=== PATIENT | male | born 1955 | race Caucasian/White ===

== ENCOUNTER 2024-02-03 22:16 | Emergency (ER) | payer MEDICARE, SELFPAY ==
[2024-02-03 22:27] VITALS: BP 222/132; PULSE 65; RESP 16; TEMP 36.7; O2SAT 96; BMI 35.4
--- NOTE | 2024-02-03 23:16 | CTR_ITS ---
PROCEDURE INFORMATION: Exam: CT Abdomen And Pelvis With Contrast Exam date and time: 02/03/2024 11:45 PM Age: 68 years old Clinical indication: Abdominal pain; Prior surgery; Surgery date: 6+ months; Surgery type: Umbilical hernia repair; Patient HX: C/O periumbilical pain; Additional info: Abd pain TECHNIQUE: Imaging protocol: Computed tomography of the abdomen and pelvis with contrast. Radiation optimization: All CT scans at this facility use at least one of these dose optimization techniques: automated exposure control; mA and/or kV adjustment per patient size (includes targeted exams where dose is matched to clinical indication); or iterative reconstruction. Contrast material: OMNI 350; Contrast volume: 100 ml; Contrast route: INTRAVENOUS (IV); COMPARISON: No relevant prior studies available. RADIATION DOSE METRICS: Total DLP (mGy-cm): 1129.13 FINDINGS: Liver: Hepatic steatosis. Gallbladder and biliary ducts: Unremarkable. Pancreas: Unremarkable. Spleen: Unremarkable. Adrenal glands: Unremarkable. Kidneys and ureters: 5 x 3 mm calcified obstructive stone the left UVJ with grade 2 left-sided hydronephrosis and perinephric fat stranding. Stomach and bowel: Unremarkable. No mechanical obstruction. No mucosal thickening. Appendix: Unremarkable. Intraperitoneal space: Unremarkable. No free air. No significant fluid collection. Vasculature: Mild atherosclerotic changes of the aorta and its major branches. Lymph nodes: Unremarkable. No enlarged lymph nodes. Urinary bladder: Unremarkable. Reproductive: Unremarkable. Bones/joints: Multilevel spondylosis. Soft tissues: Unremarkable. CT/CT abdomen pelvis w con* [id number] IMPRESSION: 5 x 3 mm calcified obstructive stone the left UVJ with grade 2 left-sided hydronephrosis and perinephric fat stranding.
--- NOTE | 2024-02-03 23:23 | ED_ITS ---
HPI - Abdominal Pain 2 General: Chief Complaint: Abdominal Pain Stated Complaint: abd below belly button Time Seen by Provider: 02/03/24 23:09 History of Present Illness: 68-year-old male patient with a history of 4 hours of abdominal pain, patient localizes pain underneath his umbilicus. He has vomited a couple of times. No fever. No diarrhea. He had a bowel movement this morning that was normal. No blood in the stool. He had an umbilical hernia repair at 1 point. Related Data Previous Rx's Medication Instructions Recorded amlodipine 10 mg tablet 10 mg PO DAILY #30 tabs 02/04/24 ondansetron 4 mg disintegrating 4 mg PO Q6H PRN nausea and 02/04/24 tablet vomiting #14 tabs oxycodone-acetaminophen 7.5 mg-325 1 tab PO Q6H PRN pain #10 tabs 02/04/24 mg tablet (Percocet) tamsulosin 0.4 mg capsule (Flomax) 0.4 mg PO DAILY #10 caps 02/04/24 Allergies Allergy/AdvReac Type Severity Reaction Status Date / Time No Known Allergies Allergy Verified 02/03/24 22:31 Physical Exam 2 Const: COMMON NORMALS: no acute distress GENERAL APPEARANCE: cooperative; not frail appearing HENMT: COMMON NORMALS: normocephalic, atraumatic and Normal external nose present HEAD & SCALP: normocephalic and atraumatic FACE & SINUS: normal facial exam and face symmetric NOSE: Normal external nose present Eye: COMMON NORMALS: Equal, round and reactive pupils present and EOMs intact bilaterally PUPIL: Yes Equal, round and reactive pupils present Neck/C-Spine: GENERAL: Yes trachea midline Chest: CHEST: Yes Symmetrical chest wall rise Resp: COMMON NORMALS: normal respiratory effort, No retractions, No use of accessory muscles and clear to auscultation bilaterally AUSCULTATION: clear to auscultation bilaterally Cardio: COMMON NORMALS: regular rate and regular rhythm RATE: regular rate RHYTHM: regular rhythm GI: COMMON NORMALS: Normal to inspection, nondistended, normoactive bowel sounds present PALPATION: Yes Tenderness to palpation present (GI) Details: LLQ : BLADDER/KIDNEY EXAM: Yes CVA tenderness on the left Back/Pelvis: GENERAL BACK: Yes CVA tenderness Extremity: COMMON NORMALS: no pedal edema Neuro: KEREN COMA SCALE: document GCS findings [place] coma scale eye opening: Spontaneous [place] coma scale verbal response: Orientated [place] coma scale motor response: Obey commands [place] coma scale total score: 15 S ENSORY EXAM: Yes extremities (intact) Psych: COMMON NORMALS: speech normal SPEECH: Yes normal speech Skin: COMMON NORMALS: no rashes or lesions noted GENERAL SKIN EXAM: no rashes or lesions noted Course 2 Vital Signs: Vital signs: Vital Signs Temperature 98.1 F 02/03/24 22:27 Pulse Rate 89 02/04/24 01:14 Respiratory Rate 16 02/03/24 22:27 Blood Pressure 178/86 02/04/24 01:14 Pulse Oximetry 97 02/04/24 01:14 MDM - Abdominal Pain Medical Decision Making Patient is obviously in pain. Very hypertensive. Dilaudid and Zofran have been ordered. CT is pending. Patient with untreated hypertension. He admits to not taking medication for this. He is given amlodipine and hydralazine with some improvement in his blood pressure. Laboratory is not remarkable. The patient has a 5 x 3 mm calcified obstructive stone in the left UVJ with perinephric fat stranding. No UTI by urinalysis testing. He will be prescribed pain medication Flomax and Zofran. He will also be prescribed amlodipine for the hypertension. To return for worsening symptoms despite treatment. Urology follow-up. Lab Data 02/03/24 22:50 02/03/24 22:50 Labs/Radiology: Radiology Impressions Abdomen/Pelvis CT 02/03/24 23:16 IMPRESSION: 5 x 3 mm calcified obstructive stone the left UVJ with grade 2 left-sided hydronephrosis and perinephric fat stranding. Laboratory Results WBC 11.37 10^3/uL (3.29-11.43) 02/03/24 22:50 RBC 4.93 10^6/uL (3.85-5.65) 02/03/24 22:50 Hgb 15.50 g/dL (11.27-16.99) 02/03/24 22:50 Hct 43.2 % (37-53) 02/03/24 22:50 MCV 87.6 fl (82-101) 02/03/24 22:50 MCH 31.4 pg (27-33) 02/03/24 22:50 MCHC 35.9 g/dL (30-55) 02/03/24 22:50 RDW 12.7 % (12.1-15.1) 02/03/24 22:50 Plt Count 183 10^3/cmm (157-399) 02/03/24 22:50 MPV 8.6 fL (7.4-10.4) 02/03/24 22:50 Neut % (Auto) 78.5 % 02/03/24 22:50 Lymph % (Auto) 13.5 % 02/03/24 22:50 Mobile % (Auto) 6.0 % 02/03/24 22:50 Eos % (Auto) 0.4 % 02/03/24 22:50 Baso % (Auto) 0.8 % 02/03/24 22:50 Neut # (Auto) 8.93 10^3/uL (1.8-7.7) H 02/03/24 22:50 Lymph # (Auto) 1.5 10^3/uL (0.8-4.8) 02/03/24 22:50 Mobile # (Auto) 0.7 10^3/uL (0.2-0.9) 02/03/24 22:50 Eos # (Auto) 0.1 10^3/uL (0.0-0.8) 02/03/24 22:50 Baso # (Auto) 0.1 10^3/uL (0.0-0.1) 02/03/24 22:50 Nucleated RBC % (auto) 0 % 02/03/24 22:50 Nucleated RBCs # 0.0 /100WBC 02/03/24 22:50 Sodium 141 mmol/L (136-145) 02/03/24 22:50 Potassium 3.6 mmol/L (3.5-5.1) 02/03/24 22:50 Chloride 102 mmol/L (98-107) 02/03/24 22:50 Carbon Dioxide 23 mmol/L (22-29) 02/03/24 22:50 Anion Gap 19.6 (5-19) H 02/03/24 22:50 BUN 14 mg/dL (8-23) 02/03/24 22:50 Creatinine 1.1 mg/dL (0.7-1.2) 02/03/24 22:50 GFR Calculation 66.4 mL/min (90-130) L 02/03/24 22:50 Glucose 177 mg/dL (65-115) H 02/03/24 22:50 Calculated Osmolality 297 mOsm/kg (285-295) H 02/03/24 22:50 Lactic Acid 3.2 mmol/L (0.5-2.2) H 02/03/24 23:26 Calcium 9.6 mg/dL (8.5-10.5) 02/03/24 22:50 Total Bilirubin 0.5 mg/dL (0.15-1.2) 02/03/24 22:50 AST 24 U/L (0-40) 02/03/24 22:50 ALT 64 U/L (0-41) H 02/03/24 22:50 Alkaline Phosphatase 66 U/L (40-130) 02/03/24 22:50 C-Reactive Protein 18.3 mg/L (0.0-4.9) H 02/03/24 22:50 Total Protein 7.1 g/dL (6.6-8.7) 02/03/24 22:50 Albumin 4.5 g/dL (3.5-5.2) 02/03/24 22:50 Globulin 2.6 g/dL (1.3-4.6) 02/03/24 22:50 Lipase 20 U/L (13-60) 02/03/24 22:50 Urine Color Yellow (Yellow) 02/04/24 00:00 Urine Appearance Clear (CLEAR) 02/04/24 00:00 Urine pH 5.5 (5-7) 02/04/24 00:00 Ur Specific [place] 1.016 (1.005-1.030) 02/04/24 00:00 Urine Protein Negative (Negative) 02/04/24 00:00 Urine Glucose (UA) Negative (Normal) 02/04/24 00:00 Urine Ketones Trace (Negative) 02/04/24 00:00 Urine Blood Negative (Negative) 02/04/24 00:00 Urine Nitrate Negative (Negative) 02/04/24 00:00 Urine Bilirubin Negative (Negative) 02/04/24 00:00 Urine Urobilinogen 0.2 mg/dL (Negative) 02/04/24 00:00 Ur Leukocyte Esterase Negative (Negative) 02/04/24 00:00 Urine RBC 0-2 /hpf (0-2) 02/04/24 00:00 Urine WBC 0-5 /hpf (0-5) 02/04/24 00:00 Ur Squamous Epith Cells 0-5 /hpf (0-5) 02/04/24 00:00 Amorphous Sediment Not Reportable 02/04/24 00:00 Urine Bacteria None seen /hpf (NONE) 02/04/24 00:00 Hyaline Casts 0.40 /lpf 02/04/24 00:00 All radiology interpretation(s) finalized by discharge Discharge Plan Discharge Patient Disposition: Home Clinical Impression: Ureterolithiasis Condition: Stable Prescriptions: New oxycodone-acetaminophen [Percocet] 7.5-325 mg tablet 1 tab PO Q6H PRN (Reason: pain) Qty: 10 0RF ondansetron 4 mg tablet,disintegrating 4 mg PO Q6H PRN (Reason: nausea and vomiting) Qty: 14 0RF tamsulosin [Flomax] 0.4 mg capsule 0.4 mg PO DAILY Qty: 10 0RF amlodipine 10 mg tablet 10 mg PO DAILY Qty: 30 0RF Discharge Orders: Discharge ED (Routine); Ordered 02/04/24 Ordered By: Aj Alberts Referrals: Parag Palomares MD [Referring] - 4-7 days Arian Barba MD [Primary Care Provider] - Patient Instructions: Kidney Stones (ED), Opioid Safety, Pain Management Activity Restrictions/Additional Instructions: Medication as directed. Return for worsening pain despite treatment, fever greater than 100, vomiting liquids or medications, other concerning symptoms. Call urology at the number listed above for a follow-up appointment in the morning. 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
[2024-02-03 23:25] LABS: Basophils # 0.1 10^3/uL (0.0-0.1); Basophils % 0.8 %; Eosinophils # 0.1 10^3/uL (0.0-0.8); Eosinophils % 0.4 %; Hematocrit 43.2 % (37-53); Lymphocytes # 1.5 10^3/uL (0.8-4.8); Lymphocytes % 13.5 %; Mean Corpuscular HGB Conc 35.9 g/dL (30-55); Mean Corpuscular Hemoglobin 31.4 pg (27-33); Mean Corpuscular Volume 87.6 fl (82-101); Mean Platelet Volume 8.6 fL (7.4-10.4); Monocytes # 0.7 10^3/uL (0.2-0.9); Neutrophils # 8.93 10^3/uL (1.8-7.7); Neutrophils % 78.5 %; Nucleated Red Blood Cells % 0 %; Platelet Count 183 10^3/cmm (157-399); Red Blood Count 4.93 10^6/uL (3.85-5.65); Red Cell Distribution Width 12.7 % (12.1-15.1); White Blood Count 11.37 10^3/uL (3.29-11.43)
[2024-02-03] MEDS: HYDROmorphone 1 mg/mL INJ 1 mL IVP (23:28)
[2024-02-03] MEDS: ondansetron 2 mg/ML SDV 2 mL 4 MG IVP (23:28)
[2024-02-03] MEDS: iohexol 350 mg/mL 500 mL Btl (per mL) IV (23:47)
[2024-02-03 23:54] LABS: Alanine Aminotransferase 64 U/L (0-41); Albumin Level 4.5 g/dL (3.5-5.2); Alkaline Phosphatase 66 U/L (40-130); Anion Gap 19.6 (5-19); Aspartate Amino Transferase 24 U/L (0-40); Blood Urea Nitrogen 14 mg/dL (8-23); C Reactive Protein 18.3 mg/L (0.0-4.9); Calcium 9.6 mg/dL (8.5-10.5); Carbon Dioxide 23 mmol/L (22-29); Chloride 102 mmol/L (98-107); Creatinine Clr Calc Pharmacy 77.0644; Globulin 2.6 g/dL (1.3-4.6); Glomerular Filtration Rate 66.4 mL/min (90-130); Glucose 177 mg/dL (65-115); Lipase 20 U/L (13-60); Osmolality Calculated 297 mOsm/kg (285-295); Potassium 3.6 mmol/L (3.5-5.1); Sodium 141 mmol/L (136-145); Total Bilirubin 0.5 mg/dL (0.15-1.2); Total Protein 7.1 g/dL (6.6-8.7)
[2024-02-03 23:55] LABS: Lactic Sepsis W/Reflex 3.2 mmol/L (0.5-2.2)
[2024-02-04 00:07] LABS: Bilirubin Urine Negative (Negative); Blood Urine Negative (Negative); Glucose Urine UA Negative (Normal); Ketones Urine Trace (Negative); Leukocyte Esterase Urine Negative (Negative); Nitrate Urine Negative (Negative); Protein Urine Negative (Negative); Specific Gravity, Urine 1.016 (1.005-1.030); Urine Appearance Clear (CLEAR); Urine Color Yellow (Yellow); Urobilinogen Urine 0.2 mg/dL (Negative); pH Urine 5.5 (5-7)
[2024-02-04] MEDS: hyDRALAzine 20 mg/mL INJ 1 mL 10 MG IVP (00:09)
[2024-02-04] MEDS: amlodipine 10 mg Tablet PO (00:09)
[2024-02-04 00:10] LABS: Add Urine Microscopic? YES; Bacteria Urine None Seen /hpf; RBC Urine 0-2 /hpf (0-2); Squamous Epithelial Cell Urine 0-5 /hpf (0-5); WBC Urine 0-5 /hpf (0-5)
[2024-02-04] MEDS: ketorolac 30 mg/mL INJ IVP (01:06)
[2024-02-04] MEDS: morphine 4 mg/mL SDV 1 mL IVP (01:06)
[2024-02-04 01:14] VITALS: BP 178/86; PULSE 89; O2SAT 97
[2024-02-04 01:15] LABS: Reflex Lactate Order REFLEX LACTIC ORDERD
== END 2024-02-04 01:15 | disposition home or self-care (01) ==
PROVIDERS: Emergency Provider Emergency Medicine; PCP Family Medicine
DX: N20.1 Calculus of ureter (principal)
CPT/HCPCS: 36415; 74177; 80053; 81001; 83605; 83690; 85025; 86140; 96374; 96375; 99285; J0360; J1171; J1885; J2270; J2405